=== PATIENT | female | born 1990 | race American Indian/Alaskan Native ===

== ENCOUNTER 2017-09-09 13:45 | Emergency (ER) | payer SELFPAY ==
[2017-09-09 14:57] VITALS: BP 139/91
--- NOTE | 2017-09-09 17:16 | Emergency Department Report ---
HPI - General Chief Complaint: Pain General Time Seen by Provider: 09/09/17 17:14 - HPI HPI: Patient here for toothache 10 out of 10 times one day. She says she has G DKA and filling fell out. Pain is located to her right lower back tooth. Denies any fever or chills. Denies any nausea or vomiting. Patient does not have any access to dental care. She says she took [id number] medication but it's not helping. ED Past Medical Hx - Past Medical History Previous Medical History?: Yes Additional medical history: gastritis - Surgical History Past Surgical History?: No - Family History Family history: no significant - Social History Smoking Status: Current Every Day Smoker Substance Use Type: Alcohol - Medications Home Medications: Home Medications Medication Instructions Recorded Confirmed Last Taken Type HYDROcodone/APAP 10-325 [[place] 1 each PO Q6HR PRN #8 tablet 06/04/15 06/07/15 Unknown Rx 10-325 mg TAB] Ondansetron [Zofran Odt] 4 mg SL Q6H PRN #8 tab.rapdis 06/04/15 06/07/15 Unknown Rx Amoxicillin [Amoxicillin TAB] 875 mg PO BID #20 tablet 08/01/15 Unknown Rx Famotidine [Pepcid] 20 mg PO DAILY #30 tablet 10/03/15 Unknown Rx Nitrofurantoin [place]/M-Cryst 100 mg PO Q12HR 7 Days 10/03/15 Unknown Rx [Macrobid CAP] Ondansetron [Zofran Odt] 4 mg PO Q8H #10 tab.rapdis 10/03/15 Unknown Rx metroNIDAZOLE [Flagyl] 500 mg PO Q12HR 7 Days 10/03/15 Unknown Rx Acetaminophen/Codeine [Tylenol 1 tab PO Q6H PRN #16 tab 09/09/17 Unknown Rx /Codeine # 3 tab] Penicillin V Potassium 500 mg PO Q8H #30 tablet 09/09/17 Unknown Rx ED Review of Systems ROS: Stated complaint: TOOTHACHE Other details as noted in HPI Comment: All other systems reviewed and negative Constitutional: no symptoms reported ENT: dental pain. denies: ear pain, throat pain, congestion Respiratory: no symptoms reported Cardiovascular: denies: chest pain, palpitations, edema, syncope Gastrointestinal: denies: nausea, vomiting Musculoskeletal: denies: back pain, joint swelling, arthralgia, myalgia Skin: denies: rash Neurological: denies: headache, numbness, paresthesias, abnormal gait, vertigo Physical Exam - Physical Exam Vital Signs: Vital Signs 09/09/17 14:51 Temperature 98.8 F Pulse Rate 68 Respiratory 20 Rate Blood Pressure 139/91 Blood Pressure 139/91 [Left] O2 Sat by Pulse 99 Oximetry General: This is a 26-year-old female well-nourished well-developed in no acute distress. Physical Exam: Head: Normocephalic atraumatic Ears:BIateral TM pearly swenson .bilateral EAC without any redness or swelling. No mastoid bone tenderness. Mouth: Moist, no pharyngeal erythema or exudate . No tonsillar erythema or exudate. UVULA midline and oral airways patent. No peritonsillar abscess. Positive gingivitis with dental caries and tenderness around tooth #18. Neck: Nontender to palpate, supple, normal range of motion. No adenopathy. No c- spine tenderness. Nose: Bilateral nasal mucosa normal .maxillary and frontal sinuses nontender to palpate. Eyes: Sclerae and conjunctiva without injection. Bilateral pupils equal and reactive to light. Bilateral lids are normal. Normal accommodation.BEOMI Lungs: Clear to auscultate bilaterally, no rhonchi wheezes or rales. Normal work of breathing and no chest wall tenderness CV: S1, S2. Regular rate and rhythm negative murmur. Capillary refill is less than 3 seconds Skin: Clean dry and intact, no rashes or lesions Psych: Normal mood and behavior ED Course Vital Signs 09/09/17 14:51 Temperature 98.8 F Pulse Rate 68 Respiratory 20 Rate Blood Pressure 139/91 Blood Pressure 139/91 [Left] O2 Sat by Pulse 99 Oximetry - Reevaluation(s) Reevaluation #1: 09/09/17 18:15 Receive [place] 5/325 2 tablets in the emergency room for toothache. ED Medical Decision Making - Medical Decision Making ED course: She'll with toothache and says she does not have access to the dentist and she was hoping that the emergency room would pull her tooth. I discussed the patient that we will treat her pain and give her antibiotic for inflamed gums and dental tenderness but she will need to be followed by a dentist to be evaluated and have her tooth pulled. Patient with gingivitis, dental caries, toothache. No abscess or induration noted. No facial swelling. Patient was given [place] 5/325 2 tablets in emergency room. She voices understanding of her diagnosis and treatment plan and need to follow up at [facility] dental clinic for further evaluation by dentist. Discharged home with prescription for Tylenol No. 3 and penicillin. Critical care attestation.: If time is entered above; I have spent that time in minutes in the direct care of this critically ill patient, excluding procedure time. ED Disposition Clinical Impression: Tooth ache, Dental caries, Gingivitis Disposition: - TO HOME OR SELFCARE Is pt being admited?: No Does the pt Need Aspirin: No Condition: Stable Instructions: Dental Caries (ED), Toothache (ED), Gingivitis (ED) Additional Instructions: Follow-up at [facility] dental clinic call tomorrow to schedule an appointment Please take antibiotic as prescribed Drive or operate heavy machinery while taking Tylenol No. 3 as this medication causes drowsiness Gargle Listerine twice a day Floss twice daily Prescriptions: Acetaminophen/Codeine [Tylenol /Codeine # 3 tab] 1 tab PO Q6H PRN #16 tab PRN Reason: Toothache Penicillin V Potassium 500 mg PO Q8H #30 tablet Referrals: [facility] [Outside] - 09/11/17 Forms: Work/School Release Form(ED)
[2017-09-09] MEDS ORDERED: PERCOCET 5/325 PO ONE (17:30)
== END 2017-09-09 19:00 | disposition home or self-care (01) ==
LOC: ED 13:45
DX: K02.9 Dental caries, unspecified (principal); K05.10 Chronic gingivitis, plaque induced; F17.200 Nicotine dependence, unspecified, uncomplicated
CPT/HCPCS: 99282

== ENCOUNTER 2017-11-12 00:53 | Emergency (ER) | payer OTHER ==
[2017-11-12] MEDS ORDERED: ZOFRAN ODT ONE ×3 (01:40→11:48)
[2017-11-12] MEDS ORDERED: ZOFRAN ODT PO ONE ×3 (01:40→11:48)
[2017-11-12] MEDS ORDERED: TYLENOL ONE (02:00)
[2017-11-12 02:36] LABS: Basophils % (Auto) 0.3 % (0.0-1.8); Eosinophils % (Auto) 0.1 % (0.0-4.3); Hematocrit 45.6 % (30.3-42.9); Hemoglobin 15.4 gm/dl (10.1-14.3); Lymphocytes # (Auto) 1.4 K/mm3 (1.2-5.4); Lymphocytes % (Auto) 13.1 % (13.4-35.0); Mean Corpuscular HGB Conc 34 % (30-34); Mean Corpuscular Hemoglobin 31 pg (28-32); Mean Corpuscular Volume 91 fl (79-97); Monocytes # (Auto) 0.6 K/mm3 (0.0-0.8); Monocytes % (Auto) 5.7 % (0.0-7.3); Platelet Count 315 K/mm3 (140-440); Red Blood Count 4.99 M/mm3 (3.65-5.03); Red Cell Distribution Width 13.1 % (13.2-15.2)
[2017-11-12 02:58] LABS: Alanine Aminotransferase 16 units/L (7-56); Albumin 5.2 g/dL (3.9-5); BUN/Creatinine Ratio 20; Blood Urea Nitrogen 14 mg/dL (7-17); Calcium 9.8 mg/dL (8.4-10.2); Hemolysis Index 18; Lipase 33 units/L (13-60)
[2017-11-12] MEDS ORDERED: MORPHINE IV ONE (13:02)
[2017-11-12] MEDS ORDERED: NACL 0.9% 1000 ML 1,000 ML IV ONE (13:02)
[2017-11-12] MEDS ORDERED: BENADRYL IV ONE (13:02)
[2017-11-12] MEDS ORDERED: PEPCID IV ONE (13:02)
[2017-11-12] MEDS ORDERED: REGLAN IV ONE (13:02)
[2017-11-12] MEDS ORDERED: NACL 0.9% 1000 ML 1,000 ML ONE (13:57)
[2017-11-12] MEDS ORDERED: D5NS 1,000 ML IV SCH ×2 (14:00)
[2017-11-12 14:26] VITALS: BP 119/60
[2017-11-12] MEDS ORDERED: ALUM-MAG HYDROX-SIMETH 200-200-20MG/5ML PO ONE (14:43)
[2017-11-12] MEDS ORDERED: LIDOCAINE VISCOUS 2% PO ONE (14:43)
[2017-11-12 15:27] LABS: Bilirubin,Urine NEG (Negative); Blood,Urine NEG (Negative); Color,Urine Yellow (Yellow); Mucus,Urine FEW /HPF; Nitrite,Urine NEG (Negative); Urobilinogen,Urine < 2.0 mg/dL (<2.0)
[2017-11-12] MEDS ORDERED: PHENERGAN PR ONE (16:11)
--- NOTE | 2017-11-12 16:12 | Emergency Department Report ---
ED Abdominal Pain HPI - General Chief Complaint: Abdominal Pain Stated Complaint: VOMITING,CHEST PAIN Time Seen by Provider: 11/12/17 12:34 Source: patient Mode of arrival: Ambulatory Limitations: No Limitations - History of Present Illness Initial Comments: 27-year-old female with a past medical history of gastritis and possible cyclic vomiting syndrome presents to the hospital with complaints of nausea, vomiting, Kymberly Madrigal, and by mouth intolerance for the past 3-4 days. Patient complains of generalized abdominal pain that radiates up to her epigastrium and chest. Pain is aching and burning in nature. Pain is constant and worse with palpation. No alleviating factors supportive. Pain is rated 8/10 intensity. Patient has had similar symptoms in the past and reports that she has had endoscopy and GI workup. Patient states that these symptoms are similar to previous episodes. Previous medical record review. Patient has several visits here in 2014 for similar symptoms. On 06/08/2015 patient had a EGD with normal esophagus, normal stomach which was biopsied, and a normal duodenum. Diagnosis was probable cyclic vomiting syndrome. Patient also had multiple CT abdomen and pelvis that year that were normal/unremarkable Severity scale (0 -10): 3 - Related Data Previous Rx's Medication Instructions Recorded Last Taken Type Ondansetron [Zofran Odt] 4 mg SL Q6H PRN #8 tab.rapdis 06/04/15 Unknown Rx Amoxicillin [Amoxicillin TAB] 875 mg PO BID #20 tablet 08/01/15 Unknown Rx Nitrofurantoin [place]/M-Cryst 100 mg PO Q12HR 7 Days capsule 10/03/15 Unknown Rx [Macrobid CAP] Ondansetron [Zofran Odt] 4 mg PO Q8H #10 tab.rapdis 10/03/15 Unknown Rx metroNIDAZOLE [Flagyl] 500 mg PO Q12HR 7 Days tab 10/03/15 Unknown Rx Acetaminophen/Codeine [Tylenol 1 tab PO Q6H PRN #16 tab 09/09/17 Unknown Rx /Codeine # 3 tab] Penicillin V Potassium 500 mg PO Q8H #30 tablet 09/09/17 Unknown Rx Famotidine [Pepcid] 20 mg PO DAILY #30 tablet 11/12/17 Unknown Rx HYDROcodone/APAP 10-325 [[place] 1 each PO Q6HR PRN #20 tablet 11/12/17 Unknown Rx 10-325 mg TAB] Ondansetron [Zofran Odt] 4 mg PO Q8HR PRN #20 tab.rapdis 11/12/17 Unknown Rx Promethazine [Phenergan] 25 mg AR Q6HR PRN #20 supp.rect 11/12/17 Unknown Rx Allergies Allergy/AdvReac Type Severity Reaction Status Date / Time No Known Allergies Allergy Verified 05/24/14 12:35 ED Review of Systems ROS: Stated complaint: VOMITING,CHEST PAIN Other details as noted in HPI Comment: All other systems reviewed and negative Other: Constitutional: No fevers chills Eyes: No eye pain visual changes ENT: No ear pain or throat pain Neck: Denies pain Respiratory: Denies cough wheezing shortness of breath Cardiovascular: Denies chest pain, palpitations, syncope GI: As per HPI : Denies dysuria Musculoskeletal: Denies back pain, joint swelling Skin: Denies rash, lesions, erythema Neurologic: Denies headache, numbness, weakness Psychiatric: Denies suicidal ideation, hallucinations ED Past Medical Hx - Past Medical History Previous Medical History?: Yes Additional medical history: gastritis - Surgical History Past Surgical History?: No - Social History Smoking Status: Current Every Day Smoker Substance Use Type: Alcohol, Marijuana - Medications Home Medications: Home Medications Medication Instructions Recorded Confirmed Last Taken Type Ondansetron [Zofran Odt] 4 mg SL Q6H PRN #8 tab.rapdis 06/04/15 06/07/15 Unknown Rx Amoxicillin [Amoxicillin TAB] 875 mg PO BID #20 tablet 08/01/15 Unknown Rx Nitrofurantoin [place]/M-Cryst 100 mg PO Q12HR 7 Days capsule 10/03/15 Unknown Rx [Macrobid CAP] Ondansetron [Zofran Odt] 4 mg PO Q8H #10 tab.rapdis 10/03/15 Unknown Rx metroNIDAZOLE [Flagyl] 500 mg PO Q12HR 7 Days tab 10/03/15 Unknown Rx Acetaminophen/Codeine [Tylenol 1 tab PO Q6H PRN #16 tab 09/09/17 Unknown Rx /Codeine # 3 tab] Penicillin V Potassium 500 mg PO Q8H #30 tablet 09/09/17 Unknown Rx Famotidine [Pepcid] 20 mg PO DAILY #30 tablet 11/12/17 Unknown Rx HYDROcodone/APAP 10-325 [[place] 1 each PO Q6HR PRN #20 tablet 11/12/17 Unknown Rx 10-325 mg TAB] Ondansetron [Zofran Odt] 4 mg PO Q8HR PRN #20 tab.rapdis 11/12/17 Unknown Rx Promethazine [Phenergan] 25 mg AR Q6HR PRN #20 supp.rect 11/12/17 Unknown Rx ED Physical Exam - General Limitations: No Limitations - Other Other exam information: General: No limitations, patient is alert in no acute distress Head exam: Atraumatic, normocephalic Eyes exam: Normal appearance, pupils equal reactive to light, extraocular movements intact ENT: Moist mucous membrane, normal oropharynx Neck exam: Normal inspection, full range of motion, no meningismus nontender Respiratory exam: Clear to auscultation bilateral, no wheezes, rales, crackles Cardiovascular: Normal rate and rhythm, normal heart sounds Abdomen: Soft, nondistended, generalized abdominal "soreness" with tenderness at the epigastric area Extremity: Full range of motion normal inspection no deformity Back: Normal Inspection, full range of motion, no tenderness Neurologic: Alert, oriented x3, cranial nerves intact, no motor or sensory deficit Psychiatric: normal affect, normal mood Skin: Warm, dry, intact ED Course Vital Signs 11/12/17 11/12/17 11/12/17 01:05 01:28 11:17 Temperature 98.7 F 98.7 F 98.1 F Pulse Rate 77 90 64 Respiratory 18 18 16 Rate Blood Pressure 118/87 118/87 Blood Pressure 126/79 [Left] O2 Sat by Pulse 97 97 100 Oximetry 11/12/17 11/12/17 11/12/17 12:50 12:58 13:38 Temperature 98 F Pulse Rate 64 72 Respiratory 20 18 20 Rate Blood Pressure Blood Pressure 139/99 125/72 [Left] O2 Sat by Pulse 100 99 Oximetry 11/12/17 14:25 Temperature Pulse Rate 76 Respiratory 18 Rate Blood Pressure Blood Pressure 119/60 [Left] O2 Sat by Pulse 99 Oximetry - Reevaluation(s) Reevaluation #1: 11/12/17 16:20 Patient had an extended ER stay. During this time she's received a total of Zofran 60 mg, Reglan 10 mg, and IV Pepcid, 2 L of D5NS, 1 L of normal saline, IV morphine, and IV Benadryl with improvement in symptoms. After receiving Maalox with viscous lidocaine and her nausea returned. Additional Phenergan ordered. ED Medical Decision Making - Lab Data Result diagrams: 11/12/17 01:47 11/12/17 01:47 Lab Results 11/12/17 11/12/17 11/12/17 Range/Units 01:47 01:47 01:47 WBC 11.0 (4.5-11.0) K/mm3 RBC 4.99 (3.65-5.03) M/mm3 Hgb 15.4 H (10.1-14.3) gm/dl Hct 45.6 H (30.3-42.9) % MCV 91 (79-97) fl MCH 31 (28-32) pg MCHC 34 (30-34) % RDW 13.1 L (13.2-15.2) % Plt Count 315 (140-440) K/mm3 Lymph % (Auto) 13.1 L (13.4-35.0) % [place] % (Auto) 5.7 (0.0-7.3) % Eos % (Auto) 0.1 (0.0-4.3) % Baso % (Auto) 0.3 (0.0-1.8) % Lymph # 1.4 (1.2-5.4) K/mm3 [place] # 0.6 (0.0-0.8) K/mm3 Eos # 0.0 (0.0-0.4) K/mm3 Baso # 0.0 (0.0-0.1) K/mm3 Seg Neutrophils % 80.8 H (40.0-70.0) % Seg Neutrophils # 8.9 H (1.8-7.7) K/mm3 Sodium 135 L (137-145) mmol/L Potassium 4.0 (3.6-5.0) mmol/L Chloride 91.1 L (98-107) mmol/L Carbon Dioxide 27 (22-30) mmol/L Anion Gap 21 mmol/L BUN 14 (7-17) mg/dL Creatinine 0.7 (0.7-1.2) mg/dL Estimated GFR > 60 ml/min BUN/Creatinine Ratio 20 % Glucose 108 H (65-100) mg/dL Calcium 9.8 (8.4-10.2) mg/dL Total Bilirubin 0.50 (0.1-1.2) mg/dL AST 19 (5-40) units/L ALT 16 (7-56) units/L Alkaline Phosphatase 57 (35-129) units/L Total Protein 8.3 H (6.3-8.2) g/dL Albumin 5.2 H (3.9-5) g/dL Albumin/Globulin Ratio 1.7 % Lipase 33 (13-60) units/L HCG, Qual Negative (Negative) Urine Color (Yellow) Urine Turbidity (Clear) Urine pH (5.0-7.0) Ur Specific [place] (1.003-1.030) Urine Protein (Negative) mg/dL Urine Glucose (UA) (Negative) mg/dL Urine Ketones (Negative) mg/dL Urine Blood (Negative) Urine Nitrite (Negative) Urine Bilirubin (Negative) Urine Urobilinogen (<2.0) mg/dL Ur Leukocyte Esterase (Negative) Urine WBC (Auto) (0.0-6.0) /HPF Urine RBC (Auto) (0.0-6.0) /HPF U Epithel Cells (Auto) (0-13.0) /HPF Urine Mucus /HPF 11/12/ Range/Units 14:35 WBC (4.5-11.0) K/mm3 RBC (3.65-5.03) M/mm3 Hgb (10.1-14.3) gm/dl Hct (30.3-42.9) % MCV (79-97) fl MCH (28-32) pg MCHC (30-34) % RDW (13.2-15.2) % Plt Count (140-440) K/mm3 Lymph % (Auto) (13.4-35.0) % [place] % (Auto) (0.0-7.3) % Eos % (Auto) (0.0-4.3) % Baso % (Auto) (0.0-1.8) % Lymph # (1.2-5.4) K/mm3 [place] # (0.0-0.8) K/mm3 Eos # (0.0-0.4) K/mm3 Baso # (0.0-0.1) K/mm3 Seg Neutrophils % (40.0-70.0) % Seg Neutrophils # (1.8-7.7) K/mm3 Sodium (137-145) mmol/L Potassium (3.6-5.0) mmol/L Chloride (98-107) mmol/L Carbon Dioxide (22-30) mmol/L Anion Gap mmol/L BUN (7-17) mg/dL Creatinine (0.7-1.2) mg/dL Estimated GFR ml/min BUN/Creatinine Ratio % Glucose (65-100) mg/dL Calcium (8.4-10.2) mg/dL Total Bilirubin (0.1-1.2) mg/dL AST (5-40) units/L ALT (7-56) units/L Alkaline Phosphatase (35-129) units/L Total Protein (6.3-8.2) g/dL Albumin (3.9-5) g/dL Albumin/Globulin Ratio % Lipase (13-60) units/L HCG, Qual (Negative) Urine Color Yellow (Yellow) Urine Turbidity Clear (Clear) Urine pH 6.0 (5.0-7.0) Ur Specific [place] 1.022 (1.003-1.030) Urine Protein 30 mg/dl (Negative) mg/dL Urine Glucose (UA) >=500 (Negative) mg/dL Urine Ketones 80 (Negative) mg/dL Urine Blood Neg (Negative) Urine Nitrite Neg (Negative) Urine Bilirubin Neg (Negative) Urine Urobilinogen < 2.0 (<2.0) mg/dL Ur Leukocyte Esterase Tr (Negative) Urine WBC (Auto) 5.0 (0.0-6.0) /HPF Urine RBC (Auto) 2.0 (0.0-6.0) /HPF U Epithel Cells (Auto) 14.0 H (0-13.0) /HPF Urine Mucus Few /HPF - EKG Data -: EKG Interpreted by Pa EKG shows normal: sinus rhythm (82), axis (4), QRS complexes (85), ST-T waves ( no stemi) Rate: normal - EKG Data When compared to previous EKG there are: no significant change - Medical Decision Making Previous record documents patient uses marijuana therefore UDS ordered to consider marijuana induced vomiting syndrome Patient likely has an exacerbation of her cyclic vomiting syndrome given previous history and workup and can be discharged with meds if symptoms improved. - Differential Diagnosis cyclic vomiting syndrome, gastritis, pancreatitis, cholelithiasis, Critical Care Time: No Critical care attestation.: If time is entered above; I have spent that time in minutes in the direct care of this critically ill patient, excluding procedure time. ED Disposition Clinical Impression: Cyclic vomiting syndrome, Gastritis Disposition: TO HOME OR SELFCARE Is pt being admited?: No Does the pt Need Aspirin: No Condition: Stable Instructions: Gastritis (ED), Acute Nausea and Vomiting (ED) Additional Instructions: Take the medication as prescribed. Follow-up with your doctor and/or the GI specialist provided. Return if symptoms worsen Prescriptions: Famotidine [Pepcid] 20 mg PO DAILY #30 tablet HYDROcodone/APAP 10-325 [[place] 10-325 mg TAB] 1 each PO Q6HR PRN #20 tablet PRN Reason: Pain Ondansetron [Zofran Odt] 4 mg PO Q8HR PRN #20 tab.rapdis PRN Reason: Nausea And Vomiting Promethazine [Phenergan] 25 mg AR Q6HR PRN #20 supp.rect PRN Reason: Nausea And Vomiting Referrals: [facility] [place] [Provider Group] - 3-5 Days TATY JACKSON MD [Staff Physician] - 3-5 Days (GI doctor ) Time of Disposition: 17:00
[2017-11-12 16:36] LABS: Amphetamine Screen,Urine PRESUMPTIVE NEGATIVE; Benzodiazepines Screen,Urine PRESUMPTIVE NEGATIVE; Cocaine Screen,Urine PRESUMPTIVE NEGATIVE; Methadone Screen,Urine PRESUMPTIVE NEGATIVE
[2017-11-12 16:50] LABS: Cannabinoid Screen,Urine PRESUMPTIVE POSITIVE; Opiate Screen,Urine PRESUMPTIVE POSITIVE
== END 2017-11-12 17:30 | disposition home or self-care (01) ==
LOC: ED 00:53
DX: K29.70 Gastritis, unspecified, without bleeding (principal); G43.A0 Cyclical vomiting, in migraine, not intractable; F17.200 Nicotine dependence, unspecified, uncomplicated; F12.10 Cannabis abuse, uncomplicated
CPT/HCPCS: 36415; 80053; 80307; 81001; 83690; 84703; 85025; 93005; 93010; 96361; 96374; 96375; 99283; J1200; J2270; J2765; J7030; J7042; Q0162

== ENCOUNTER 2018-03-01 08:13 | Emergency (ER) | payer OTHER ==
[2018-03-01 10:17] LABS: Basophils % (Auto) 0.3 % (0.0-1.8); Eosinophils % (Auto) 0.2 % (0.0-4.3); Hematocrit 45.9 % (30.3-42.9); Hemoglobin 15.5 gm/dl (10.1-14.3); Lymphocytes # (Auto) 1.1 K/mm3 (1.2-5.4); Lymphocytes % (Auto) 8.3 % (13.4-35.0); Mean Corpuscular HGB Conc 34 % (30-34); Mean Corpuscular Hemoglobin 31 pg (28-32); Mean Corpuscular Volume 92 fl (79-97); Monocytes # (Auto) 0.5 K/mm3 (0.0-0.8); Monocytes % (Auto) 4.3 % (0.0-7.3); Platelet Count 284 K/mm3 (140-440); Red Blood Count 5.02 M/mm3 (3.65-5.03); Red Cell Distribution Width 14.1 % (13.2-15.2)
[2018-03-01 10:29] LABS: Alanine Aminotransferase 11 units/L (7-56); Albumin 4.6 g/dL (3.9-5); BUN/Creatinine Ratio 16; Blood Urea Nitrogen 11 mg/dL (7-17); Calcium 9.7 mg/dL (8.4-10.2); Hemolysis Index 16; Lipase 29 units/L (13-60)
[2018-03-01] MEDS ORDERED: NACL 0.9% 1000 ML 1,000 ML IV ONE (11:11)
[2018-03-01] MEDS ORDERED: ZOFRAN IV ONE ×2 (11:11→12:25)
[2018-03-01] MEDS ORDERED: TORADOL IV ONE (11:11)
[2018-03-01] MEDS ORDERED: MORPHINE IV ONE (11:13)
--- NOTE | 2018-03-01 11:18 | Emergency Department Report ---
ED Abdominal Pain HPI - General Chief Complaint: Abdominal Pain Stated Complaint: VOMITING Time Seen by Provider: 03/01/18 11:07 Source: patient Mode of arrival: Ambulatory Limitations: No Limitations - History of Present Illness Initial Comments: This is a 27-year-old female nontoxic, well nourished in appearance, no acute signs of distress presents to the ED with c/o of acute on chronic abdominal pain 4 days. Patient stated she has been seen by her primary care doctor and marketing senior recruiter for the past 5 years for intermittent abdominal pains with nausea and vomiting. Patient states she is not currently diagnosed with anything as they are not able to find out the cause. Patient stated that symptoms have recurred 4 days ago with nausea and vomiting and body chills. Patient stated the vomiting causes her to have a burning sensation in the chest area and epigastric region. Patient describes abdominal pain as diffuse and describes as aching/cramping with level VIII out of 10. Patient states vomiting consisted of food content and yellow gastric acid. Patient denies any recent travels, long car rides, or recent hospital stays. Patient denies constipation or diarrhea. Patient denies any dysuria or urinary symptoms. Patient denies any hemoptysis, chest pain, shortness of breath, fever, back pain , numbness, tingling. Patient stated had several GI exams and procedures including EGD and Imaging studies. Patient stated that symptoms are resolved with warm baths. Patient also stated that she does heavy amount of marijuana daily. Patient denies any drug allergies. Past medical history includes gastritis. As per previous medical record review. Patient has several visits here in 2015 for similar symptoms. On 06/08/2015 patient had a EGD with normal esophagus, normal stomach which was biopsied, and a normal duodenum. Diagnosis was probable cyclic vomiting syndrome. Patient also had multiple CT abdomen and pelvis that year that were normal/unremarkable MD Complaint: abdominal pain -: days(s) (4) Location: diffuse Radiation: none Migration to: no migration Severity: mild Severity scale (0 -10): 8 Quality: cramping, aching Consistency: intermittent Improves With: nothing Worsens With: nothing Associated Symptoms: nausea, vomiting, chills. denies: diarrhea, fever, constipation, dysuria, hematemesis, hematochezia, melena, hematuria, anorexia, syncope - Related Data Previous Rx's Medication Instructions Recorded Last Taken Type Ondansetron [Zofran Odt] 4 mg SL Q6H PRN #8 tab.rapdis 06/04/15 Unknown Rx Amoxicillin [Amoxicillin TAB] 875 mg PO BID #20 tablet 08/01/15 Unknown Rx Nitrofurantoin [place]/M-Cryst 100 mg PO Q12HR 7 Days capsule 10/03/15 Unknown Rx [Macrobid CAP] Ondansetron [Zofran Odt] 4 mg PO Q8H #10 tab.rapdis 10/03/15 Unknown Rx metroNIDAZOLE [Flagyl] 500 mg PO Q12HR 7 Days tab 10/03/15 Unknown Rx Acetaminophen/Codeine [Tylenol 1 tab PO Q6H PRN #16 tab 09/09/17 Unknown Rx /Codeine # 3 tab] Penicillin V Potassium 500 mg PO Q8H #30 tablet 09/09/17 Unknown Rx Famotidine [Pepcid] 20 mg PO DAILY #30 tablet 11/12/17 Unknown Rx HYDROcodone/APAP 10-325 [[place] 1 each PO Q6HR PRN #20 tablet 11/12/17 Unknown Rx 10-325 mg TAB] Ondansetron [Zofran Odt] 4 mg PO Q8HR PRN #20 tab.rapdis 11/12/17 Unknown Rx Promethazine [Phenergan] 25 mg RI Q6HR PRN #20 supp.rect 11/12/17 Unknown Rx Ondansetron [Zofran Odt] 4 mg PO Q8H PRN #20 tab.rapdis 03/01/18 Unknown Rx Allergies Allergy/AdvReac Type Severity Reaction Status Date / Time No Known Allergies Allergy Verified 05/24/14 12:35 ED Review of Systems ROS: Stated complaint: VOMITING Other details as noted in HPI Constitutional: denies: chills, fever Eyes: denies: eye pain, eye discharge, vision change ENT: denies: ear pain, throat pain Respiratory: denies: cough, shortness of breath, wheezing Cardiovascular: denies: chest pain, palpitations Endocrine: no symptoms reported Gastrointestinal: abdominal pain, nausea, vomiting. denies: diarrhea, constipation, hematemesis, melena, hematochezia Genitourinary: denies: urgency, dysuria, discharge Musculoskeletal: denies: back pain, joint swelling, arthralgia Skin: denies: rash, lesions Neurological: denies: headache, weakness, paresthesias Psychiatric: denies: anxiety, depression Hematological/Lymphatic: denies: easy bleeding, easy bruising ED Past Medical Hx - Past Medical History Additional medical history: gastritis - Social History Smoking Status: Current Every Day Smoker Substance Use Type: None - Medications Home Medications: Home Medications Medication Instructions Recorded Confirmed Last Taken Type Ondansetron [Zofran Odt] 4 mg SL Q6H PRN #8 tab.rapdis 06/04/15 06/07/15 Unknown Rx Amoxicillin [Amoxicillin TAB] 875 mg PO BID #20 tablet 08/01/15 Unknown Rx Nitrofurantoin [place]/M-Cryst 100 mg PO Q12HR 7 Days capsule 10/03/15 Unknown Rx [Macrobid CAP] Ondansetron [Zofran Odt] 4 mg PO Q8H #10 tab.rapdis 10/03/15 Unknown Rx metroNIDAZOLE [Flagyl] 500 mg PO Q12HR 7 Days tab 10/03/15 Unknown Rx Acetaminophen/Codeine [Tylenol 1 tab PO Q6H PRN #16 tab 09/09/17 Unknown Rx /Codeine # 3 tab] Penicillin V Potassium 500 mg PO Q8H #30 tablet 09/09/17 Unknown Rx Famotidine [Pepcid] 20 mg PO DAILY #30 tablet 11/12/17 Unknown Rx HYDROcodone/APAP 10-325 [[place] 1 each PO Q6HR PRN #20 tablet 11/12/17 Unknown Rx 10-325 mg TAB] Ondansetron [Zofran Odt] 4 mg PO Q8HR PRN #20 tab.rapdis 11/12/17 Unknown Rx Promethazine [Phenergan] 25 mg RI Q6HR PRN #20 supp.rect 11/12/17 Unknown Rx Ondansetron [Zofran Odt] 4 mg PO Q8H PRN #20 tab.rapdis 03/01/18 Unknown Rx ED Physical Exam - General Limitations: No Limitations General appearance: alert, in no apparent distress - Head Head exam: Present: atraumatic, normocephalic - Eye Eye exam: Present: normal appearance Pupils: Present: normal accommodation - ENT ENT exam: Present: normal exam, mucous membranes moist - Neck Neck exam: Present: normal inspection, full ROM. Absent: tenderness, meningismus, lymphadenopathy - Respiratory Respiratory exam: Present: normal lung sounds bilaterally. Absent: respiratory distress, wheezes, rales, rhonchi, stridor - Cardiovascular Cardiovascular Exam: Present: regular rate, normal rhythm, normal heart sounds. Absent: bradycardia, tachycardia, irregular rhythm, systolic murmur, diastolic murmur, rubs, gallop - GI/Abdominal GI/Abdominal exam: Present: soft, tenderness (diffuse), normal bowel sounds. Absent: distended, guarding, rebound, rigid, diminished bowel sounds - Expanded GI/Abdominal Exam Expanded GI/Abdominal exam: Absent: psoas sign, obturator sign, heel tap sign, Luciano's sign, Rovsing's sign, tenderness at [place]bur[place]'s Point, ascites - Rectal Rectal exam: Present: deferred - Extremities Exam Extremities exam: Present: normal inspection, full ROM, normal capillary refill. Absent: tenderness - Back Exam Back exam: Present: normal inspection, full ROM. Absent: tenderness, CVA tenderness (R), CVA tenderness (L), muscle spasm, paraspinal tenderness, vertebral tenderness, rash noted - Neurological Exam Neurological exam: Present: alert, oriented X3, CN II-XII intact, normal gait - Psychiatric Psychiatric exam: Present: normal affect, normal mood - Skin Skin exam: Present: warm, dry, intact, normal color. Absent: rash ED Course Vital Signs 03/01/18 03/01/18 09:37 12:03 Temperature 97.5 F L Pulse Rate 70 Respiratory 18 20 Rate Blood Pressure 154/94 O2 Sat by Pulse 100 Oximetry - Reevaluation(s) Reevaluation #1: 03/01/18 11:22 Patient is speaking in full sentences with no signs of distress noted. ED Medical Decision Making - Lab Data Result diagrams: 03/01/18 10:03 03/01/18 10:03 - Medical Decision Making This is a 27-year-old female that presents with cyclic vomiting syndrome. PAtient is stable and was examined by me. Ct of abdomen and pelvic with contrast obtained and dictated by the radiologist within normal limited. Patient is notified of CT results with no questions noted by the patient. Upon exam and patient history, this is most likely related to marijuana use. Patient received medical treatment in the ED extend the symptoms have resolved and subsided after an extended stay and the medical treatment. A by mouth challange has been obtained with 4 apple juices and patient tolerated well with no vomiting. Patient is discharged with Zofran. She was instructed to avoid marijuana use if medically able to. She was referred to Follow-up with a primary care doctor in 3-5 days or if symptoms worsen and continue return to emergency room as soon as possible. At time of discharge, the patient does not seem toxic or ill in appearance. No acute signs of distress noted. Patient agrees to discharge treatment plan of care. No further questions noted by the patient. Critical care attestation.: If time is entered above; I have spent that time in minutes in the direct care of this critically ill patient, excluding procedure time. ED Disposition Clinical Impression: Cyclic vomiting syndrome Qualifiers: Vomiting Intractability: intractable Nausea presence: with nausea Qualified Code(s): G43.A1 - Cyclical vomiting, intractable Disposition: - TO HOME OR SELFCARE Is pt being admited?: No Does the pt Need Aspirin: No Condition: Stable Instructions: Abdominal Pain (ED), Ondansetron (By mouth) Additional Instructions: Follow-up with a primary care doctor in 3-5 days or if symptoms worsen and continue return to emergency room as soon as possible. Prescriptions: Ondansetron [Zofran Odt] 4 mg PO Q8H PRN #20 tab.rapdis PRN Reason: Nausea Referrals: NICKY GUAJARDO MD [Primary Care Provider] - 3-5 Days PRIMARY CARE, [Referring] - 3-5 Days [facility] [Outside] - 3-5 Days [facility] [Outside] - 3-5 Days Forms: Work/School Release Form(ED)
[2018-03-01] MEDS ORDERED: PEPCID IV ONE (11:25)
[2018-03-01] MEDS ORDERED: REGLAN IV ONE (12:25)
--- NOTE | 2018-03-01 12:42 | Cat Scan Report ---
CT ABDOMEN PELVIS WITH CONTRAST: HISTORY: abdominal pain. COMPARISON: 10/03/15. TECHNIQUE: Helical CT in 1.25mm intervals following IV contrast. Sagittal and coronal reconstructions. FINDINGS: Lung bases: Normal. Liver: Normal. Biliary system: Normal. Pancreas: Normal. Spleen: Normal. Kidneys/ureters/bladder: Normal. Adrenal glands: Normal. Aorta: Normal. Intestines: Normal. Appendix: Normal. Pelvic viscera: Normal. Ascites: None. Adenopathy: None. Musculoskeletal: Normal. IMPRESSION: Unremarkable CT scan of the abdomen and pelvis with contrast. No acute process identified.
[2018-03-01 13:53] LABS: Bilirubin,Urine NEG (Negative); Blood,Urine NEG (Negative); Color,Urine Yellow (Yellow); Mucus,Urine 3+ /HPF; Protein,Urine <15 mg/dL mg/dL (Negative); Urobilinogen,Urine < 2.0 mg/dL (<2.0)
[2018-03-01 14:41] VITALS: BP 137/86
== END 2018-03-01 14:35 | disposition home or self-care (01) ==
LOC: ED 08:13
DX: G43.A1 Cyclical vomiting, in migraine, intractable (principal); R10.84 Generalized abdominal pain; F17.200 Nicotine dependence, unspecified, uncomplicated
CPT/HCPCS: 36415; 74177; 80053; 81001; 83690; 84703; 85025; 87086; 96374; 96375; 96376; 99284; J1885; J2270; J2405; J2765; J7030; Q9967

== ENCOUNTER 2018-12-25 09:37 | Emergency (ER) | payer SELFPAY ==
[2018-12-25] MEDS ORDERED: ZOFRAN IV PRN (10:02)
[2018-12-25] MEDS ORDERED: REGLAN IV ONE (11:01)
[2018-12-25] MEDS ORDERED: DILAUDID IV ONE (11:01)
[2018-12-25] MEDS ORDERED: NACL 0.9% 1000 ML 1,000 ML IV ONE (11:02)
--- NOTE | 2018-12-25 11:03 | Emergency Department Report ---
ED Abdominal Pain HPI - General Chief Complaint: Nausea/Vomiting/Diarrhea Stated Complaint: VOMITING Time Seen by Provider: 12/25/18 10:54 Source: patient, EMS (ems notes not available at time of chart dictation), RN notes reviewed, old records reviewed Mode of arrival: Stretcher Limitations: No Limitations - History of Present Illness Initial Comments: This is a 28-year-old female, with a history of presumed cyclic vomiting syndrome, cannabinoid use, does not have a local primary care doctor, unknown to this provider previously, presented to the emergency room today with complaint of diffuse abdominal pain, nausea vomiting. Symptoms present for the past few days. They're constant. They worsen with palpation. They decreased with rest and with pain medication. Patient reports that she is not . Patient reports that she has no irritative or obstructive urinary symptoms. The last use of cannabinoids was 4-5 days ago. MD Complaint: abdominal pain -: Gradual Location: diffuse Migration to: no migration Severity scale (0 -10): 10 Quality: cramping, aching Consistency: other Improves With: other Worsens With: other Associated Symptoms: nausea, vomiting - Related Data Previous Rx's Medication Instructions Recorded Last Taken Type Ondansetron [Zofran Odt] 4 mg SL Q6H PRN #8 tab.rapdis 06/04/15 Unknown Rx Amoxicillin [Amoxicillin TAB] 875 mg PO BID #20 tablet 08/01/15 Unknown Rx Nitrofurantoin [place]/M-Cryst 100 mg PO Q12HR 7 Days capsule 10/03/15 Unknown Rx [Macrobid CAP] Ondansetron [Zofran Odt] 4 mg PO Q8H #10 tab.rapdis 10/03/15 Unknown Rx metroNIDAZOLE [Flagyl] 500 mg PO Q12HR 7 Days tab 10/03/15 Unknown Rx Acetaminophen/Codeine [Tylenol 1 tab PO Q6H PRN #16 tab 09/09/17 Unknown Rx /Codeine # 3 tab] Penicillin V Potassium 500 mg PO Q8H #30 tablet 09/09/17 Unknown Rx Famotidine [Pepcid] 20 mg PO DAILY #30 tablet 11/12/17 Unknown Rx HYDROcodone/APAP 10-325 [[place] 1 each PO Q6HR PRN #20 tablet 11/12/17 Unknown Rx 10-325 mg TAB] Ondansetron [Zofran Odt] 4 mg PO Q8HR PRN #20 tab.rapdis 11/12/17 Unknown Rx Promethazine [Phenergan] [address] Q6HR PRN #20 supp.rect 11/12/17 Unknown Rx Ondansetron [Zofran Odt] 4 mg PO Q8H PRN #20 tab.rapdis 03/01/18 Unknown Rx Dicyclomine [Bentyl] 10 mg PO QID PRN #20 capsule 12/25/18 Unknown Rx Famotidine [Pepcid] 20 mg PO BID #30 tablet 12/25/18 Unknown Rx Dominique Root [Dominique] 250 mg PO QID PRN #30 capsule 12/25/18 Unknown Rx Ondansetron [Zofran Odt] 4 mg PO Q8HR PRN #20 tab.rapdis 12/25/18 Unknown Rx Promethazine [Phenergan SUPPOS] [address] Q6H PRN #15 supp.rect 12/25/18 Unknown Rx Allergies Allergy/AdvReac Type Severity Reaction Status Date / Time No Known Allergies Allergy Verified 05/24/14 12:35 ED Review of Systems ROS: Stated complaint: VOMITING Other details as noted in HPI Constitutional: malaise. denies: fever Eyes: denies: vision change ENT: denies: epistaxis Respiratory: denies: cough Cardiovascular: denies: chest pain Gastrointestinal: abdominal pain, nausea, vomiting Genitourinary: denies: urgency, dysuria Musculoskeletal: arthralgia Skin: denies: lesions Neurological: weakness Psychiatric: anxiety ED Past Medical Hx - Past Medical History Previous Medical History?: No Additional medical history: gastritis - Surgical History Past Surgical History?: No - Social History Smoking Status: Current Some Day Smoker - Medications Home Medications: Home Medications Medication Instructions Recorded Confirmed Last Taken Type Ondansetron [Zofran Odt] 4 mg SL Q6H PRN #8 tab.rapdis 06/04/15 06/07/15 Unknown Rx Amoxicillin [Amoxicillin TAB] 875 mg PO BID #20 tablet 08/01/15 Unknown Rx Nitrofurantoin [place]/M-Cryst 100 mg PO Q12HR 7 Days capsule 10/03/15 Unknown Rx [Macrobid CAP] Ondansetron [Zofran Odt] 4 mg PO Q8H #10 tab.rapdis 10/03/15 Unknown Rx metroNIDAZOLE [Flagyl] 500 mg PO Q12HR 7 Days tab 10/03/15 Unknown Rx Acetaminophen/Codeine [Tylenol 1 tab PO Q6H PRN #16 tab 09/09/17 Unknown Rx /Codeine # 3 tab] Penicillin V Potassium 500 mg PO Q8H #30 tablet 09/09/17 Unknown Rx Famotidine [Pepcid] 20 mg PO DAILY #30 tablet 11/12/17 Unknown Rx HYDROcodone/APAP 10-325 [[place] 1 each PO Q6HR PRN #20 tablet 11/12/17 Unknown Rx 10-325 mg TAB] Ondansetron [Zofran Odt] 4 mg PO Q8HR PRN #20 tab.rapdis 11/12/17 Unknown Rx Promethazine [Phenergan] [address] Q6HR PRN #20 supp.rect 11/12/17 Unknown Rx Ondansetron [Zofran Odt] 4 mg PO Q8H PRN #20 tab.rapdis 03/01/18 Unknown Rx Dicyclomine [Bentyl] 10 mg PO QID PRN #20 capsule 12/25/18 Unknown Rx Famotidine [Pepcid] 20 mg PO BID #30 tablet 12/25/18 Unknown Rx Dominique Root [Dominique] 250 mg PO QID PRN #30 capsule 12/25/18 Unknown Rx Ondansetron [Zofran Odt] 4 mg PO Q8HR PRN #20 tab.rapdis 12/25/18 Unknown Rx Promethazine [Phenergan SUPPOS] [address] Q6H PRN #15 supp.rect 12/25/18 Unknown Rx ED Physical Exam - General Limitations: No Limitations General appearance: alert, anxious, in distress, obese - Head Head exam: Present: atraumatic, normocephalic - Eye Eye exam: Present: normal appearance, EOMI. Absent: nystagmus - ENT ENT exam: Present: normal exam, normal orophraynx, mucous membranes dry, normal external ear exam - Neck Neck exam: Present: normal inspection, full ROM. Absent: tenderness, meningismus - Respiratory Respiratory exam: Present: normal lung sounds bilaterally. Absent: respiratory distress - Cardiovascular Cardiovascular Exam: Present: regular rate, normal rhythm, normal heart sounds. Absent: bradycardia, tachycardia, irregular rhythm, systolic murmur, diastolic murmur, rubs, gallop - GI/Abdominal GI/Abdominal exam: Present: soft. Absent: distended, tenderness, guarding, rebound, rigid, pulsatile mass - Extremities Exam Extremities exam: Present: normal inspection, full ROM. Absent: pedal edema, joint swelling, calf tenderness - Back Exam Back exam: Present: normal inspection, full ROM. Absent: tenderness, CVA tenderness (R), paraspinal tenderness, vertebral tenderness - Neurological Exam Neurological exam: Present: alert, oriented X3, CN II-XII intact, normal gait, other (Extraocular movements intact. Tongue midline. No facial droop. Facial sensation intact to light touch in the V1, V2, V3 distribution bilaterally. 5 and 5 strength in 4 extremities.. Sensation is intact to light touch in 4 extremities.). Absent: motor sensory deficit - Psychiatric Psychiatric exam: Present: normal affect, normal mood - Skin Skin exam: Present: warm, dry, intact, normal color. Absent: rash ED Course Vital Signs 12/25/18 12/25/18 12/25/18 09:49 09:50 10:00 Temperature 98.7 F Pulse Rate 81 96 H 90 Respiratory 13 13 Rate Blood Pressure 132/106 115/84 O2 Sat by Pulse 100 Oximetry 12/25/18 12/25/18 12/25/18 10:15 10:30 10:45 Temperature Pulse Rate 94 H 93 H 96 H Respiratory 15 21 12 Rate Blood Pressure 133/85 141/97 139/89 O2 Sat by Pulse 94 94 98 Oximetry 12/25/18 11:15 Temperature Pulse Rate 86 Respiratory 17 Rate Blood Pressure 136/87 O2 Sat by Pulse Oximetry - Reevaluation(s) Reevaluation #1: 12/25/18 11:39 Differential diagnosis, including a not limited to: Cyclic vomiting syndrome, gastritis, cannabinoid hyperemesis syndrome Assessment and plan: 28-year-old female who has presented to this emergency department multiple times with abdominal pain, nausea and vomiting. The patient has had numerous CT scans of abdomen and pelvis, all of which have been basically negative for acute surgical disease. She has had prior urine toxicology studies which have demonstrated the presence of cannabinoids. The patient is afebrile, with reassuring vital signs, and has a nontender abdomen. She is clinically sober at this time. She does not meet 1013 criteria. I believe that the patient has a legitimate pain component to her presentation, we will therefore treat her with Reglan, IV fluids, hydromorphone. The patient was given Zofran prior to my arrival. If she is still experiencing emesis and nausea after Reglan, she will be given Haldol. Reevaluation #2: 12/25/18 12:03 Laboratory studies reviewed, and are unremarkable. Belly soft on repeat exam. No active vomiting. Patient reports that she is ready for discharge. She is counseled to discontinue cannabis consumption. ED Medical Decision Making - Lab Data Result diagrams: 12/25/18 Unknown 12/25/18 Unknown Vital Signs 12/25/18 12/25/18 12/25/18 09:49 09:50 10:00 Temperature 98.7 F Pulse Rate 81 96 H 90 Respiratory 13 13 Rate Blood Pressure 132/106 115/84 O2 Sat by Pulse 100 Oximetry 12/25/18 12/25/18 12/25/18 10:15 10:30 10:45 Temperature Pulse Rate 94 H 93 H 96 H Respiratory 15 21 12 Rate Blood Pressure 133/85 141/97 139/89 O2 Sat by Pulse 94 94 98 Oximetry 12/25/18 11:15 Temperature Pulse Rate 86 Respiratory 17 Rate Blood Pressure 136/87 O2 Sat by Pulse Oximetry Lab Results 12/25/18 12/25/18 Range/Units Unknown Unknown WBC 12.8 H (4.5-11.0) K/mm3 RBC 5.10 H (3.65-5.03) M/mm3 Hgb 15.9 H (10.1-14.3) gm/dl Hct 46.8 H (30.3-42.9) % MCV 92 (79-97) fl MCH 31 (28-32) pg MCHC 34 (30-34) % RDW 13.6 (13.2-15.2) % Plt Count 351 (140-440) K/mm3 HCG, Quant < 2 (0-4) mIU/mL Critical care attestation.: If time is entered above; I have spent that time in minutes in the direct care of this critically ill patient, excluding procedure time. ED Disposition Clinical Impression: Abdominal pain Disposition: DC-01 TO HOME OR SELFCARE Is pt being admited?: No Does the pt Need Aspirin: No Condition: Good Additional Instructions: Discontinue consumption of cannabis, as this is most likely causing the patient's symptoms. Avoid consumption of heavy, spicy foods, Motrin, ibuprofen, Naprosyn, Aleve. Take the medications as needed/directed; dominique as directed may help with stopping nausea, vomiting. Follow up with the primary care doctor or lodge attendant within the next 3-4 weeks. Return to the emergency room right away with new, worsening, different symptoms. Referrals: SYLVIA WEEKS MD [Primary Care Provider] - as needed [facility] [Provider Group] - 7-10 days [facility] [Provider Group] - as needed
[2018-12-25 11:28] LABS: Hematocrit 46.8 % (30.3-42.9); Hemoglobin 15.9 gm/dl (10.1-14.3); Mean Corpuscular HGB Conc 34 % (30-34); Mean Corpuscular Volume 92 fl (79-97); Platelet Count 351 K/mm3 (140-440); Red Cell Distribution Width 13.6 % (13.2-15.2)
[2018-12-25 11:49] LABS: Alanine Aminotransferase 8 units/L (7-56); Albumin 5.3 g/dL (3.9-5); BUN/Creatinine Ratio 19; Blood Urea Nitrogen 15 mg/dL (7-17); Calcium 10.2 mg/dL (8.4-10.2); Hemolysis Index 31
[2018-12-25 12:31] VITALS: BP 122/79
== END 2018-12-25 12:30 | disposition home or self-care (01) ==
LOC: ED 09:37
DX: R10.84 Generalized abdominal pain (principal); R11.2 Nausea with vomiting, unspecified
CPT/HCPCS: 36415; 80053; 83690; 83735; 84702; 85027; 96361; 96374; 96375; 99284; J1170; J2405; J2765; J7030

== ENCOUNTER 2019-03-10 21:16 | Emergency (ER) | payer OTHER ==
--- NOTE | 2019-03-10 21:26 | Emergency Department Report ---
Blank Doc - Documentation Documentation: This is a 28-year-old female that presents with abdominal pain with nausea and vomiting. This initial assessment/diagnostic orders/clinical plan/treatment(s) is/are subject to change based on patient's health status, clinical progression and re- assessment by fellow clinical providers in the ED. Further treatment and workup at subsequent clinical providers discretion. Patient/guardians urged not to elope from the ED as their condition may be serious if not clinically assessed and managed. Initial orders include: 1- Patient sent to [facility] for further evaluation and treatment 2- labs 3- UA
[2019-03-10 22:06] LABS: Hematocrit 43.4 % (30.3-42.9); Hemoglobin 14.5 gm/dl (10.1-14.3); Mean Corpuscular HGB Conc 33 % (30-34); Mean Corpuscular Volume 91 fl (79-97); Platelet Count 249 K/mm3 (140-440); Red Blood Count 4.75 M/mm3 (3.65-5.03); Red Cell Distribution Width 12.8 % (13.2-15.2)
[2019-03-10 22:20] LABS: Alanine Aminotransferase 12 units/L (7-56); Albumin 5.5 g/dL (3.9-5); BUN/Creatinine Ratio 17; Blood Urea Nitrogen 12 mg/dL (7-17); Calcium 10.7 mg/dL (8.4-10.2); Hemolysis Index 16
[2019-03-10 22:35] LABS: Bilirubin,Direct < 0.2 mg/dL (0-0.2)
[2019-03-10 22:50] LABS: Bilirubin,Urine NEG (Negative); Blood,Urine NEG (Negative); Color,Urine Yellow (Yellow); Mucus,Urine 3+ /HPF; Urobilinogen,Urine < 2.0 mg/dL (<2.0)
[2019-03-10 22:51] LABS: Band Neutrophils # (Manual) 0.3 K/mm3; Basophils % (Manual) 0 % (0.0-1.8); Eosinophils % (Manual) 0 % (0.0-4.3); Total Cells Counted 100
[2019-03-10 22:52] LABS: RBC Morphology Normal
[2019-03-10] MEDS ORDERED: NACL 0.9% 1000 ML 1,000 ML IV ONE (23:29)
[2019-03-10] MEDS ORDERED: ZOFRAN IV ONE (23:29)
[2019-03-10] MEDS ORDERED: MORPHINE IV ONE (23:29)
--- NOTE | 2019-03-10 23:38 | Emergency Department Report ---
HPI - General Chief Complaint: Abdominal Pain Time Seen by Provider: 03/10/19 21:26 - HPI HPI: 28-year-old female presents to the emergency department with a complaint of generalized abdominal pain, nausea and vomiting that has been going on since this morning. She denies any fever, vaginal bleeding or discharge, dysuria, back pain. She denies a past medical history but appears to have been here previously for similar symptoms and some charts suggest cyclic vomiting syndrome. The patient has been unable to take anything for her symptoms prior to arrival. She does not have a primary care physician. Recent travel or sick contacts at home. ED Past Medical Hx - Past Medical History Previous Medical History?: Yes Additional medical history: gastritis - Surgical History Past Surgical History?: No - Social History Smoking Status: Current Every Day Smoker Substance Use Type: None - Medications Home Medications: Home Medications Medication Instructions Recorded Confirmed Last Taken Type Ondansetron [Zofran Odt] 4 mg SL Q6H PRN #8 tab.rapdis 06/04/15 06/07/15 Unknown Rx Amoxicillin [Amoxicillin TAB] 875 mg PO BID #20 tablet 08/01/15 Unknown Rx Nitrofurantoin Ritchie/M-Cryst 100 mg PO Q12HR 7 Days capsule 10/03/15 Unknown Rx [Macrobid CAP] Ondansetron [Zofran Odt] 4 mg PO Q8H #10 tab.rapdis 10/03/15 Unknown Rx metroNIDAZOLE [Flagyl] 500 mg PO Q12HR 7 Days tab 10/03/15 Unknown Rx Acetaminophen/Codeine [Tylenol 1 tab PO Q6H PRN #16 tab 09/09/17 Unknown Rx /Codeine # 3 tab] Penicillin V Potassium 500 mg PO Q8H #30 tablet 09/09/17 Unknown Rx Famotidine [Pepcid] 20 mg PO DAILY #30 tablet 11/12/17 Unknown Rx HYDROcodone/APAP 10-325 [[place] 1 each PO Q6HR PRN #20 tablet 11/12/17 Unknown Rx 10-325 mg TAB] Ondansetron [Zofran Odt] 4 mg PO Q8HR PRN #20 tab.rapdis 11/12/17 Unknown Rx Promethazine [Phenergan] 25 mg IN Q6HR PRN #20 supp.rect 11/12/17 Unknown Rx Ondansetron [Zofran Odt] 4 mg PO Q8H PRN #20 tab.rapdis 03/01/18 Unknown Rx Dicyclomine [Bentyl] 10 mg PO QID PRN #20 capsule 12/25/18 Unknown Rx Famotidine [Pepcid] 20 mg PO BID #30 tablet 12/25/18 Unknown Rx Dominique Root [Dominique] 250 mg PO QID PRN #30 capsule 12/25/18 Unknown Rx Ondansetron [Zofran Odt] 4 mg PO Q8HR PRN #20 tab.rapdis 12/25/18 Unknown Rx Promethazine [Phenergan SUPPOS] 50 mg IN Q6H PRN #15 supp.rect 12/25/18 Unknown Rx Ondansetron [Zofran Odt] 4 mg PO Q8HR PRN #15 tab.rapdis 03/11/19 Unknown Rx ED Review of Systems ROS: Stated complaint: VOMITING/ABD PAIN Other details as noted in HPI Comment: All other systems reviewed and negative Constitutional: denies: chills, fever Eyes: denies: eye pain, vision change ENT: denies: ear pain, throat pain Respiratory: denies: cough, shortness of breath Cardiovascular: denies: chest pain, palpitations Gastrointestinal: abdominal pain, nausea, vomiting Genitourinary: denies: dysuria, frequency Musculoskeletal: denies: back pain, arthralgia Skin: denies: rash, lesions Neurological: denies: headache, weakness Physical Exam - Physical Exam Vital Signs: Vital Signs 03/10/19 21:19 Temperature 98.3 F Pulse Rate 86 Respiratory 16 Rate Blood Pressure 145/93 O2 Sat by Pulse 100 Oximetry Physical Exam: GENERAL: The patient is well-developed well-nourished. HEENT: Normocephalic. Atraumatic. Patient has moist mucous membranes. EYES: Extraocular motions are intact. Pupils are equal and reactive to light bilaterally. NECK: Supple. Trachea is midline. CHEST/LUNGS: Clear to auscultation. There is no respiratory distress noted. HEART/CARDIOVASCULAR: Regular. There is no tachycardia. There is no obvious murmur. ABDOMEN: Abdomen is soft. There is some mild epigastric tenderness to palpation. No guarding. Patient has normal bowel sounds. There is no abdominal distention. SKIN: Skin is warm and dry. NEURO: The patient is awake, alert, and oriented. The patient is cooperative. The patient has no focal neurologic deficits. The patient has normal speech. MUSCULOSKELETAL: There is no tenderness or deformity. There is no limitation range of motion. There is no evidence of acute injury. ED Course Vital Signs 03/10/19 21:19 Temperature 98.3 F Pulse Rate 86 Respiratory 16 Rate Blood Pressure 145/93 O2 Sat by Pulse 100 Oximetry ED Medical Decision Making - Lab Data Result diagrams: 03/10/19 21:41 03/10/19 21:41 - Radiology Data Radiology results: image reviewed interpreted by me: Abdominal x-ray shows nonspecific nonobstructive bowel gas. - Medical Decision Making Patient presents to emergency department with a one-day history of generalized abdominal pain, nausea and vomiting. Since being in the emergency Department there has been no further episodes of vomiting. She was given IV fluid resuscitation, Zofran and a dose of pain medication. Labs are mostly un remarkable including normal belly labs such as lipase, LFTs and bilirubin. Urinalysis does show some dehydration with 80 ketones in the urine. Abdominal x-ray shows nonspecific nonobstructive bowel gas. The patient was feeling improved after the medications and was able to pass an oral challenge. Vital signs stable throughout ED course. The patient be discharged home to follow up with primary care and has been given a referral for gastroenterology. She will return to the ER with any worsening of her symptoms or any acute distress. - Differential Diagnosis food poisoning, gastritis, colitis, cyclic vomiting Critical Care Time: No Critical care attestation.: If time is entered above; I have spent that time in minutes in the direct care of this critically ill patient, excluding procedure time. ED Disposition Clinical Impression: Dehydration Nausea & vomiting Qualifiers: Vomiting type: unspecified Vomiting Intractability: non-intractable Qualified Code(s): R11.2 - Nausea with vomiting, unspecified Abdominal pain Qualifiers: Abdominal location: generalized Qualified Code(s): R10.84 - Generalized abdominal pain Disposition: -01 TO HOME OR SELFCARE Is pt being admited?: No Condition: Stable Instructions: Dehydration (ED), Acute Nausea and Vomiting (ED), Abdominal Pain (ED) Additional Instructions: Please follow up with a primary care physician. I am giving you a referral for a local client support manager, Dr. Abraham, to follow up regarding your abdominal pains. Return to the emergency Department with any worsening of your symptoms or any acute distress. Increase your oral rehydration. Prescriptions: Ondansetron [Zofran Odt] 4 mg PO Q8HR PRN #15 tab.rapdis PRN Reason: Nausea Referrals: NOE ABRAHAM MD [Staff Physician] - 2-3 Days [facility] [Outside] - 2-3 Days Time of Disposition: 02:05
--- NOTE | 2019-03-11 00:15 | XRay Report ---
PROCEDURE: XR ABDOMEN 2V TECHNIQUE: Abdominal series, including supine and upright AP views. HISTORY: Abd pain COMPARISONS: None . FINDINGS: Bowel gas pattern: Nonobstructive . Masses or calcifications: None . Bony structures: No significant abnormality . Pneumoperitoneum: None . Other: No significant findings . IMPRESSION: No acute abnormality. This document is electronically signed by Gayla Esparza DO., March 11 2019 12:12:18 AM ET
[2019-03-11 02:26] VITALS: BP 115/40
== END 2019-03-11 02:27 | disposition home or self-care (01) ==
LOC: ED 21:16
DX: E86.0 Dehydration (principal); R10.84 Generalized abdominal pain; R11.2 Nausea with vomiting, unspecified; F17.200 Nicotine dependence, unspecified, uncomplicated
CPT/HCPCS: 36415; 74019; 80048; 80076; 81001; 83690; 84703; 85007; 85025; 96361; 96374; 96375; 99284; J2270; J2405; J7030